=== PATIENT | female | born 1945 | race Caucasian/White ===

== ENCOUNTER 2021-04-27 11:43 | Inpatient (IN) | payer MEDICARE, SELFPAY ==
[2021-04-27] VITALS (7 sets, daily range): BP systolic 141–194; BP diastolic 57–81; PULSE 64–105; RESP 14–23; TEMP 36.6–36.7; O2SAT 98–100; BMI 16.7
--- NOTE | ~2021-04-27 | US_ITS ---
EXAMINATION: US right upper quadrant EXAM DATE: 04/28/2021 14:48 INDICATION: Renal cyst and dilated bile duct. TECHNIQUE: Multiple grayscale and Doppler images of the abdomen right upper quadrant were obtained (b y a technologist who performed the scan) and subsequently reviewed. Correlation is made to CT abdomen pelvis earlier same day. FINDINGS: The pancreatic head and body are normal in appearance. The pancreatic tail is not visualized. The l iver has normal echogenicity and contour. There are no focal liver lesions identified. There is no evidence of intrahepatic biliary duct dilation. Portal venous flow was seen in the hepatopedal, nor mal direction and has normal Doppler waveform. No right-sided hydronephrosis. Cannot identify the sub centimeter right renal lesion reported as indeterminate on CT, statistically most likely hemorrhagic cyst. Common bile duct measures 13 mm, which is considered dilated. The gallbladder wall is normal in thick ness, with expected amount of distention. No sonographic evidence of pericholecystic fluid. There i s no cholelithiases. Technologist performing exam reports patient did not demonstrate sonographic Mur phy's sign. Please note that this sign is less reliable in patients who have received pain medicatio n. IMPRESSION: 1. Dilated common bile duct without cholelithiasis or choledocholithiasis identified, more pancreati c mass on CT performed earlier. If there is elevated bilirubin then MRI/MRCP or ERCP recommended. 2. Subcentimeter right renal lesion is not identified by this modality. Statistically this is most l ikely a hemorrhagic cyst. Reviewed, dictated and finalized at location A. IMPRESSION: 1. Dilated common bile duct without cholelithiasis or choledocholithiasis iden tified, more pancreatic mass on CT performed earlier. If there is elevated bili mckeon then MRI/MRCP or ERCP recommended. 2. Subcentimeter right renal lesion is not identified by this modality. Statis tically this is most likely a hemorrhagic cyst.
--- NOTE | ~2021-04-27 | CT_ITS ---
EXAMINATION: CT diagnostic chest w con DATE: 04/28/2021 13:51 INDICATION: Shortness of breath TECHNIQUE: Transaxial computed tomographic images of the chest were obtained after the administration of 75 cc of Omnipaque 350 intravenous contrast. The dose-length product (DLP) was 134.41 mGy-cm. Ite rative reconstruction was used. COMPARISON: None FINDINGS: There is moderate emphysema. Calcified pulmonary nodules are consistent with old granulomat ous disease. The lungs are free of acute opacities. There is no pleural effusion or pneumothorax. No pathologically enlarged thoracic lymph nodes are identified. The heart size is normal. There is sever e thoracic spondylosis. IMPRESSION: 1. Moderate emphysema. Reviewed, dictated and finalized at location B. IMPRESSION: 1. Moderate emphysema.
--- NOTE | ~2021-04-27 | XR_ITS ---
EXAMINATION: XR chest 2V DATE: 04/27/2021 12:59 INDICATION: Shortness of breath TECHNIQUE: Frontal and lateral views of the chest are obtained COMPARISON: None available FINDINGS: There is a superior perihilar nodular opacity on the right. There is no pleural effusion or pneumothorax. The cardiomediastinal silhouette is normal. There is severe thoracic spondylosis. IMPRESSION: 1. Right superior perihilar nodular opacity which could be infectious or inflammatory or possibly mal ignancy. Recommend followup radiographs in 10-14 days after appropriate therapy to evaluate for impro vement/resolution. Reviewed, dictated and finalized at location B. IMPRESSION: 1. Right superior perihilar nodular opacity which could be infectious or inflam matory or possibly malignancy. Recommend followup radiographs in 10-14 days aft er appropriate therapy to evaluate for improvement/resolution.
--- NOTE | ~2021-04-27 | CT_ITS ---
EXAMINATION: CT abdomen pelvis w con INDICATION: Blood in the stool TECHNIQUE: Computed tomographic images of the abdomen and pelvis were obtained after the administrati on of 100 cc of Omnipaque 350 intravenous contrast. The dose-length product (DLP) was 188.58 mGy-cm. Automated exposure control and iterative reconstruction technique were employed. COMPARISON: None available FINDINGS: There is moderate emphysema. The heart size is normal. There is a 3 mm cyst of the right he patic lobe. The spleen, pancreas, gallbladder, and adrenal glands are normal. The dilated common bile duct measures up to 11 mm. Cysts of the kidneys measure up to 5 mm on the right. There is a 9 mm hyp erdense lesion of the right mid kidney. There is calcified atherosclerosis of the aorta and many of t he other arteries. A retroaortic left renal vein is noted. No pathologically enlarged abdominal or pe lvic lymph nodes are identified. The appendix is normal. There are changes of right hip arthroplasty. There is no free intraperitoneal gas or evidence of bowel obstruction. Colonic diverticulosis is pre sent without evidence of diverticulitis. There is severe lumbar spondylosis. IMPRESSION: 1. No CT correlate for the patient's symptoms. 2. Enlargement of the common bile duct of unclear significance given normal liver function tests. 3. Indeterminate right kidney mass which could reflect hemorrhagic cyst versus neoplasm. Follow-up by CT or MRI without and with contrast is recommended. Reviewed, dictated and finalized at location B. IMPRESSION: 1. No CT correlate for the patient's symptoms. 2. Enlargement of the common bile duct of unclear significance given normal catarina er function tests. 3. Indeterminate right kidney mass which could reflect hemorrhagic cyst versus neoplasm. Follow-up by CT or MRI without and with contrast is recommended.
--- NOTE | ~2021-04-27 | MR_ITS ---
EXAMINATION: MR abdomen wo/w con INDICATION: Renal cyst TECHNIQUE: Coronal SSFSE ARC, WATER:coronal LAVA-FLEX, Coronal 2D FIESTA FatSat, Axial SSFSE BH ARC, Axial 3D DualEcho BH, Axial SSFSE-IR, Axial DWI b=500, Axial 2D FIESTA FatSat, pre and dynamic postco ntrast Axial LAVA ARC, postcontrast Coronal In and Opposed phase LAVA FLEX COMPARISON: CT, 04/28/2021 CONTRAST: Multihance, 19 cc FINDINGS: There is a 9 mm T1 and T2 isointense, nonenhancing lesion of the right kidney lower pole wh ich is consistent with a proteinaceous cyst. Simple cysts of the kidneys measure up to 5 mm. Pancreas divisum is noted. The spleen, gallbladder, and adrenal glands are normal. Cysts of the liver measure up to 6 mm. There is intrahepatic and extrahepatic biliary dilatation. The dilated common bile duct measures up to 12 mm. The pancreatic duct is normal in caliber. No pathologically enlarged abdominal lymph nodes are identified. There is a moderate volume of colonic stool. IMPRESSION: 1. Findings consistent with proteinaceous cyst of the right kidney corresponding to the lesion questi oned on recent CT. 2. Intrahepatic and extrahepatic biliary dilatation of unclear etiology. Reviewed, dictated and finalized at location B. IMPRESSION: 1. Findings consistent with proteinaceous cyst of the right kidney correspondin g to the lesion questioned on recent CT. 2. Intrahepatic and extrahepatic biliary dilatation of unclear etiology.
--- NOTE | 2021-04-27 11:51 | ECG_ITS ---
Measurements Intervals [place] Rate: 96 P: 86 VT: 195 QRS: 19 QRSD: 86 T: 88 QT: 366 QTc: 465 Interpretive Statements SINUS RHYTHM LEFT ATRIAL ENLARGEMENT INCOMPLETE RIGHT BUNDLE BRANCH BLOCK DELAYED PRECORDIAL R/S TRANSITION BORDERLINE T WAVE ABNORMALITY- HIGH LATERAL LEADS BASELINE ARTIFACT- II, III, AVR, AVF, V1, V3-V6 BORDERLINE ECG Electronically Signed On 04-27-2021 12:55:25 CDT by Wali Rodgers D.O.
--- NOTE | 2021-04-27 12:58 | ED.WEAKNESS ---
HPI - Weakness General Chief complaint: Anxiety <Vale Moore PA-C - Last Filed: 04/27/21 16:04> Stated complaint: weak <SHAHRIAR Mortensen Last Filed: 04/27/21 16:04> Time Seen by Provider: 04/27/21 11:55 <SHAHRIAR Mortensen Last Filed: 04/27/21 16:04> Source: patient <SHAHRIAR Mortensen Last Filed: 04/27/21 16:04> Mode of arrival: ambulatory <SHAHRIAR Mortensen Last Filed: 04/27/21 16:04> Limitations: no limitations <SHAHRIAR Mortensen Last Filed: 04/27/21 16:04> History of Present Illness HPI Narrative: This is a 75-year-old female that presents to the emergency department for generalized weakness. Reports yesterday over 3-hour. She had several episodes of watery diarrhea. Reports she took a dose of Imodium with relief. She went to bed early last night. This morning she was still feeling weak. Reports she had an episode of anxiety this morning. She started to feel very overwhelmed and short of breath. Called EMS who is able to calm her down. On arrival patient has no current complaints other than she does feel generally weak. Denies fever, chest pain, shortness of breath, abdominal pain, vomiting, or dysuria. <Vale Moore PA-C - Last Filed: 04/27/21 16:04> Related Data Allergies/Adverse reactions: Allergies Allergy/AdvReac Type Severity Reaction Status Date / Time ibuprofen Allergy Unknown Unknown Verified 04/27/21 11:50 <SHAHRIAR Mortensen Last Filed: 04/27/21 16:04> Review of Systems Review of Systems: Narrative: CONSTITUTIONAL: Denies fever CARDIOVASCULAR: Denies chest pain RESPIRATORY: Denies cough or dyspnea. GASTROINTESTINAL: Reports diarrhea. Denies abdominal pain, nausea, vomiting GENITOURINARY: Denies dysuria NEUROLOGIC: Reports generalized weakness. PSYCHIATRIC: Reports anxiety <SHAHRIAR Mortensen Last Filed: 04/27/21 16:04> All systems reviewed & are unremarkable except as noted in HPI and below <Vale Moore PA-C - Last Filed: 04/27/21 16:04> PMFSH Past Medical History Medical History: Medical History Essential (primary) hypertension <Vale Moore PA-C - Last Filed: 04/27/21 16:04> Surgical History Surgical History: Surgical History History of total right hip replacement 11/2015 <Vale Moore PA-C - Last Filed: 04/27/21 16:04> Social History Social History: Social History Smoking packs per day: 0.25 Smoking cigarettes per day: 5.0 Years smoked: 56 Smoking pack-years: 14.00 Smoking status: Current some day smoker Tobacco type: cigarettes (currently smoking 1-2 cigarettes/day) Second hand tobacco smoke exposure: No Alcohol intake: current Alcohol use details: 1 glass of wine consumed occansionally Substance use: never Substance use type: does not use Additional living arrangements comments: Gender identity (if verbalized by the patient): Female <Vale Moore PA-C - Last Filed: 04/27/21 16:04> Exam Narrative: Exam Narrative: GENERAL: Elderly, well-nourished, and in no acute distress. HEAD: Normocephalic, atraumatic. EYES: EOMI. ENT: Nares clear, no rhinorrhea or epistaxis. Mucous membranes moist. Oropharynx without tonsillar hypertrophy exudate or other lesions. Bilateral TMs pearly witt non-bulging NECK: Supple. No adenopathy or masses. CHEST: Clear to auscultation. No respiratory distress. No wheezes rales or rhonchi HEART: Regular rate and rhythm. No murmur heard. Normal peripheral pulses. ABDOMEN: Soft, nontender, nondistended, normal active bowel sounds. EXTREMITIES: Normal range of motion. No edema. SKIN: Warm, dry, no rash. NEURO: No focal deficits. Alert and oriented x3. PSYCH: Normal mood and affect RECTAL: Non-thrombosed hemorrhoids present. Stool i
[2021-04-27] MEDS: SODIUM CHLORIDE 0.9% IV 1,000 ML 999 ML IV CONT (13:03)
[2021-04-27 13:24] LABS: Basophils Absolute Auto 0.1 K/mm3 (0.0-0.1); Basophils Percent Auto 0.4 % (0.2-1.2); Eosinophils Percent Auto 0.4 % (0-4.4); Hematocrit 25.8 % (37.0-47.0); Hemoglobin 8.5 g/dL (12.0-15.0); Immature Granulocyte Absolute 0.07 K/mm3 (0.00-0.031); Immature Granulocyte Percent A 0.6 % (0-0.5); Lymphocytes Absolute Auto 1.19 K/mm3 (0.9-3.2); Lymphocytes Percent Auto 10.4 % (18.3-44.2); Mean Corpuscular HGB Conc 32.9 g/dl (32-36); Mean Corpuscular Hemoglobin 34.3 pg (26-34); Mean Platelet Volume 9.2 fl (7.4-10.4); Monocytes Absolute Auto 0.7 K/mm3 (0.1-0.6); Monocytes Percent Auto 6.4 % (2.6-8.5); Neutrophils Absolute Auto 9.3 K/mm3 (1.3-6.7); Neutrophils Percent Auto 81.8 % (45.5-73.1); Platelet Count Result 312 k/mm3 (150-375); Red Blood Count 2.48 M/mm3 (4.2-5.4); Red Cell Distribution Width 12.6 % (11.5-14.5); White Blood Count 11.4 K/mm3 (4.5-10.0)
[2021-04-27 13:41] LABS: Alanine Aminotransferase 12 U/L (4-35); Albumin Level 3.7 g/dL (3.5-5.1); Alkaline Phosphatase 58 U/L (38-126); Anion Gap 8 mmol/L (8-16); Aspartate Amino Transferase 23 U/L (14-36); Bilirubin,Total 0.2 mg/dL (0.2-1.3); Blood Urea Nitrogen 22 mg/dL (7-17); Calcium 9.1 mg/dL (8.4-10.2); Carbon Dioxide 23 mmol/L (22-30); Chloride 110 mmol/L (98-107); Estimated CRCL calculation 23 ml/min; Estimated Glomerular Filt Rate > 60; Glucose 106 mg/dL (65-110); Lipase 74 U/L (23-300); Potassium 3.7 mmol/L (3.4-5.0); Sodium 141 mmol/L (137-145)
[2021-04-27 16:35] LABS: INR 0.9; Prothrombin Time 11.9 Seconds (11.1-14.7)
[2021-04-27 16:36] LABS: Partial Thromboplastin Time 23.9 SECONDS (22.3-36.8)
--- NOTE | 2021-04-27 16:55 | PC.NURSE ---
Patient dinner tray ordered at this time.
[2021-04-27 17:59] LABS: Hematocrit 25.6 % (37.0-47.0); Hemoglobin 8.3 g/dL (12.0-15.0)
--- NOTE | 2021-04-27 20:30 | ADMGEN ---
This patient, Sangeetha Contreras, was admitted to 2 Medical Room 257-01. Patient/family oriented to hospital policies and general routines including ID bracelet, bed and alarms, visiting hours, pain management, procedures, bathroom and other care routines, personal items, smoking policy, room service/diet, and visiting hours. Information on how to activate the Rapid Response Team has been discussed. Patient/Family are encouraged to report perceived risks to care and to ask questions if they do not understand what they are told or what they should do.
[2021-04-27] MEDS: FAMOTIDINE 20 MG/2 ML VIAL IV PUSH (21:56)
--- NOTE | 2021-04-27 22:21 | PM.IMHP ---
H&P: HPI History of Present Illness Date/Time: 04/27/21 22:21Ana is a 75-year-old female patient who has been under lot of stress with her . Her has worsening dementia and recently placed thing home. The patient is not on any blood thinners. And the patient was having some watery diarrhea yesterday of her 3 hour. She went to bed early last night and this morning she was still feeling weak. The patient stated that she has been anxious about her 's care. She feels overwhelmed. EMS was able to calm her down today. She had no fever chills. No abdominal pain no nausea vomiting. Just diarrhea. The patient has not been on any recent antibiotics. Her white count was noted to be 11.4. Her H&H initially was 8.5 and 25.8 and then it dropped down 8.3 and25.6. The patient stated that she has hot having any blood in her stool. the patient was started on IV Pepcid and IV fluids. GI has been consulted. The patient stated she has not taken any NSAIDs or aspirin. The patient is being admitted to observation status on the date of service of 04/27/2021. Chief Complaint: diarrhea stool GI bleed Review of Systems Review of Systems: All systems reviewed & are unremarkable except as noted in HPI and below Constitutional: Constitutional: Reports as per HPI and Reports no additional constitutional complaints Eyes: Eyes: Reports as per HPI and Reports no additional eye complaints ENT: Reports system reviewed and no additional complaints, except as documented and Reports Normal hearing present Cardiovascular: Cardiovascular: Reports no additional cardiovascular complaints Respiratory: Respiratory: Reports no additional respiratory complaints and Reports no additional respiratory complaints Gastrointestinal: Gastrointestinal: Reports as per HPI and Reports no additional gastrointestinal complaints Musculoskeletal: Musculoskeletal: Reports no additional musculoskeletal complaints Integumentary/Breasts: Skin/Breast: Reports system reviewed and no additional complaints, except as docu and Reports as per HPI Neurologic: Reports system reviewed and no additional complaints, except as documented, Reports as per HPI and Reports Normal hearing present Psychiatric: Psychiatric: Reports no additional psychiatric complaints and Reports as per HPI Endocrine: Endocrine: Reports no additional endocrine complaints Hematologic/Lymphatic: Hematologic/Lymphatic: Reports no additional hematologic/lymphatic complaints Allergic/Immunologic: Allergic/Immunologic: Reports no additional allergic/immunologic complaints [facility] Past Medical History Medical History Essential (primary) hypertension Surgical History Surgical History (Updated 04/27/21 @ 22:34 by Giulia Miranda NP) H/O colonoscopy with polypectomy History of total right hip replacement 11/2015 Family History Family History Other Unknown family medical history Social History Social History (Updated 04/27/21 @ 22:27 by Giulia Miranda NP) Social History: The patient stated that she still continues to smoke about half pack a cigarettes a day. She has been taking care of her who has dementia. She has 3 children. They are the durable power assistant district attorney for healthcare. The patient would like to be a full code but would not like to live in a vegetative state. 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 She occasionally drinks wine with meals. No marijuana or illicit drugs Smoking packs per day: 0.5 Smoking cigarettes per day: 10.0 Years smoked: 50 Smoking pack-years: 25.00 Smoking status: Current every day smoker Tobacco type: cigarettes Second hand tobacco smoke exposure: No Alcohol intake: current Drinks per week: 1 Alcohol use details: 1 glass of wine consumed occansionally Substance use: never Substance use type: does not
[2021-04-27 23:28] LABS: Hematocrit 23.8 % (37.0-47.0); Hemoglobin 7.7 g/dL (12.0-15.0); Immature Reticulocyte Fraction 28.5 % (3.0-15.9); Reticulocyte Percent 2.33 % (0.7-4.3); Reticulocytes Absolute 0.05 B/L (32.2-175.7)
[2021-04-27 23:39] LABS: Bilirubin,Total 0.3 mg/dL (0.2-1.3); Lactate Dehydrogenase 342 U/L (313-618)
[2021-04-27 23:47] LABS: Transferrin 250 mg/dL (206-381)
[2021-04-28] VITALS (7 sets, daily range): BP systolic 106–136; BP diastolic 48–77; PULSE 64–81; RESP 18–20; TEMP 36.4–36.8; O2SAT 95–100; BMI 16.7
[2021-04-28 00:27] LABS: Iron 61 ug/dL (37-170); Percent Iron Saturation 18 % (20-50)
[2021-04-28 05:47] LABS: Hematocrit 22.8 % (37.0-47.0); Hemoglobin 7.4 g/dL (12.0-15.0)
--- NOTE | 2021-04-28 07:34 | WPDGICN ---
Assessment and Plan Assessment and plan (1) Acute GI bleeding: Code(s): K92.2 - Gastrointestinal hemorrhage, unspecified Status: Acute Assessment and Plan: probably upper gi source- will proceed with urgent EGD, could be ulcer, avm's, esophagitis, etc iv protonix twice daily (2) Acute blood loss anemia: Code(s): D62 - Acute posthemorrhagic anemia Status: Acute Assessment and Plan: trend hb and transfuse if below 7 supportive care (3) Essential (primary) hypertension: Code(s): I10 - Essential (primary) hypertension Status: Acute (4) Weakness: Code(s): R53.1 - Weakness Status: Acute Assessment and Plan: with symptomatic anemia, from recent upper GIB at some point also will need outpatient colonoscopy GI Consult Note Consult date/time: 04/28/21 07:34 Reason for consult: dark stools, gib HPI: Sangeetha Contreras is a 75 year old female here with diarrhea after she had cucumbers night before, stool described as dark tarry, then she fell quite weak. Never had scopes. She is under a lot of stress because recently just placed her who has advanced dementia to a detention. Denies using nsaid's or blood thinners. Hb on admission 8.5 and slowly trending down to 7.4, bun 22, creat 0.9, platelets 310. Denies previous GIB. Review of Systems Constitutional: Constitutional: Denies chills and Reports weakness Eyes: Eyes: Denies blurry vision ENT: Reports Normal hearing present Cardiovascular: Cardiovascular: Denies chest pain Respiratory: Respiratory: Denies cough Gastrointestinal: Gastrointestinal: Reports melena Genitourinary: Genitourinary: Denies hematuria Musculoskeletal: Musculoskeletal: Denies neck pain Integumentary/Breasts: Skin/Breast: Denies dry skin Neurologic: Denies confusion Psychiatric: Psychiatric: Denies behavioral changes [facility] Past Medical History Medical History (Updated 04/28/21 @ 12:54 by Cleveland Modi MD) Acute blood loss anemia Essential (primary) hypertension Weakness Surgical History Surgical History (Updated 04/27/21 @ 22:34 by Giulia Miranda NP) H/O colonoscopy with polypectomy History of total right hip replacement 11/2015 Family History Family History Other Unknown family medical history Social History Social History (Updated 04/27/21 @ 22:27 by Giulia Miranda NP) Social History: The patient stated that she still continues to smoke about half pack a cigarettes a day. She has been taking care of her who has dementia. She has 3 children. They are the durable power health care attorney for healthcare. The patient would like to be a full code but would not like to live in a vegetative state. 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 She occasionally drinks wine with meals. No marijuana or illicit drugs Smoking packs per day: 0.5 Smoking cigarettes per day: 10.0 Years smoked: 50 Smoking pack-years: 25.00 Smoking status: Current every day smoker Tobacco type: cigarettes Second hand tobacco smoke exposure: No Alcohol intake: current Drinks per week: 1 Alcohol use details: 1 glass of wine consumed occansionally Substance use: never Substance use type: does not use Additional living arrangements comments: Gender identity (if verbalized by the patient): Female Spiritual care concerns: No Meds Home Medications and Allergies Home Medications Medication Instructions Recorded Confirmed Type amlodipine 10 mg PO DAILY 04/27/21 04/27/21 History Allergies Allergy/AdvReac Type Severity Reaction Status Date / Time ibuprofen Allergy Unknown Unknown Verified 04/27/21 11:50 Vital Signs Vital Signs - 24 hr 04/27/21 11:45 04/27/21 12:30 04/27/21 14:54 Temperature 98 F Pulse Rate 105 H 90 71 Respiratory Rate 15 14 17 Blood Pressure 179/80 H 194/73 H 152/67 H Pul
[2021-04-28] MEDS: FAMOTIDINE 20 MG/2 ML VIAL IV PUSH (09:38)
[2021-04-28] MEDS: amLODIPine BESYLATE 5 MG TABLET 10 MG PO (09:38)
[2021-04-28] MEDS: SODIUM CHLORIDE 0.9% IV 1,000 ML 100 ML IV CONT ×2 (09:40)
--- NOTE | 2021-04-28 10:59 | WPDANESEPPF ---
Anes - Initial Pre Proc Eval Procedure: Operation Date: 04/28/21 12:30 Proposed Procedures p Esophagogastroduodenoscopy - Cleveland Modi MD Date/Time: 04/28/21 10:59 Surgeon: Jack Isaacs MD Pre Op Diagnosis: GI Bleed Patient Data Age: 75 Gender: F Height: 1.73 m Weight: 49.8 kg Last Vital Signs Temp 36.8 C 04/28/21 06:00 Pulse 67 04/28/21 06:00 Resp 18 04/28/21 06:00 BP 136/50 L 04/28/21 06:00 Pulse Ox 97 04/28/21 06:00 Allergies Allergy/AdvReac Type Severity Reaction Status Date / Time ibuprofen Allergy Unknown Unknown Verified 04/27/21 11:50 Home Medications Medication Instructions Recorded Confirmed Type amlodipine 10 mg PO DAILY 04/27/21 04/27/21 History Laboratory Tests 04/27/21 04/27/21 04/27/21 13:16 13:16 16:15 WBC 11.4 K/mm3 H K/mm3 (4.5-10.0) RBC 2.48 M/mm3 L M/mm3 (4.2-5.4) Hgb 8.5 g/dL L g/dL (12.0-15.0) Hct 25.8 % L % (37.0-47.0) MCV 104.0 fl H fl (80-100) MCH 34.3 pg H pg (26-34) MCHC 32.9 g/dl g/dl (32-36) RDW 12.6 % % (11.5-14.5) Plt Count 312 k/mm3 k/mm3 (150-375) MPV 9.2 fl fl (7.4-10.4) Immature Gran % (Auto) 0.6 % H % (0-0.5) Neut % (Auto) 81.8 % H % (45.5-73.1) Lymph % (Auto) 10.4 % L % (18.3-44.2) Lee % (Auto) 6.4 % % (2.6-8.5) Eos % (Auto) 0.4 % % (0-4.4) Baso % (Auto) 0.4 % % (0.2-1.2) Lymph # (Auto) 1.19 K/mm3 K/mm3 (0.9-3.2) Lee # (Auto) 0.7 K/mm3 H K/mm3 (0.1-0.6) Eos # (Auto) 0.0 K/mm3 K/mm3 (0-0.3) Baso # (Auto) 0.1 K/mm3 K/mm3 (0.0-0.1) Abs Immat Gran (auto) 0.07 K/mm3 H K/mm3 (0.00-0.031) Absolute Neuts (auto) 9.3 K/mm3 H K/mm3 (1.3-6.7) Absolute Nucleated RBC 0.0 K/mm3 K/mm3 (0.0-0.012) Nucleated RBC % 0.0 % % (0.0-0.2) Absolute Retic Percent Retic Immature Retic Fraction Retic Hgb Content Haptoglobin PT 11.9 Seconds Seconds (11.1-14.7) INR 0.9 APTT 23.9 SECONDS SECONDS (22.3-36.8) Sodium 141 mmol/L mmol/L (137-145) Potassium 3.7 mmol/L mmol/L (3.4-5.0) Chloride 110 mmol/L H mmol/L (98-107) Carbon Dioxide 23 mmol/L mmol/L (22-30) Anion Gap 8 mmol/L mmol/L (8-16) BUN 22 mg/dL H mg/dL (7-17) Creatinine 0.90 mg/dL mg/dL (0.7-1.0) Estim Creat Clear Calc 23 ml/min ml/min Estimated GFR > 60 (59 - ) Glucose 106 mg/dL mg/dL (65-110) Calcium 9.1 mg/dL mg/dL (8.4-10.2) Iron TIBC % Saturation Transferrin Jane Transferrin Receptr Ferritin Total Bilirubin 0.2 mg/dL mg/dL (0.2-1.3) Direct Bilirubin AST 23 U/L U/L (14-36) ALT 12 U/L U/L (4-35) Alkaline Phosphatase 58 U/L U/L (38-126) Lactate Dehydrogenase Total Protein 6.0 g/dL L g/dL (6.3-8.2) Albumin 3.7 g/dL g/dL (3.5-5.1) Immjb-3-Gbuyjfqto Rqvsp-5-Zazdebecl Gqyf-5-Zfrslcom Psmr-3-Vqooiloh Gamma Globulins Abnorm Protein Band 1 Abnorm Protein Band 3 PEP Interpretation Lipase 74 U/L U/L (23-300) Vitamin B12 Folate TSH (Reflex) Blood Type Antibody Screen CAROLIN, IgG Interpret CAROLIN, Poly Interpret CAROLIN, Complement Interp Indirect Antiglob Test 04/27/21 04/27/21 04/27/21 16:15 17:54 23:02 WBC RBC Hgb 8.3 g/dL L g/dL 7.7 g/dL L g/dL (12.0-15.0) (12.0-15.0) Hct 2
--- NOTE | 2021-04-28 11:00 | PC.NURSE ---
Patient to CT scan and to go to GI lab from there.
[2021-04-28] MEDS: LACTATED RINGERS 1,000 ML 150 ML IV CONT (11:11)
--- NOTE | 2021-04-28 13:19 | PC.NURSE ---
Received patient back from GI lab. Patient settled in room. No distress noted and no c/o pain.
--- NOTE | 2021-04-28 13:46 | PM.IMPN ---
Progress Note: A&P Assessment and Plan (1) Acute GI bleeding: Code(s): K92.2 - Gastrointestinal hemorrhage, unspecified Status: Acute Assessment and Plan: Complaints of diarrhea with dark stools EGD today found a large ulcer GI consulted thank you H/H stable at this point will recheck IV protonix 40mg Q12hr Stool cultures still pending PTH cultures are pending Transfuse when appropriate (2) Anemia: Qualifiers: Anemia type: unspecified type Qualified Code(s): D64.9 - Anemia, unspecified Code(s): D64.9 - Anemia, unspecified Status: Acute Assessment and Plan: Med surge anemia iron 61, TIBC 330, %Sat 18, Transferrin 250, Ferritin 36.60 Started on iron 325mg PO daily Monitor H/H Transfuse as needed (3) Essential (primary) hypertension: Code(s): I10 - Essential (primary) hypertension Status: Acute Assessment and Plan: 120/49 currently Trend blood pressure Continue home amlodipine 10mg PO daily Adjust medications as needed (4) Renal cyst: Code(s): N28.1 - Cyst of kidney, acquired Status: Acute Assessment and Plan: Abd CT showed a renal cyst that could be hemophagic MRI has been ordered Will follow H/H Subjective Date/time seen: 04/28/21 07:45 Interval history: This is a 75-year-old female with a past medical history of hypertension who presented to the ED for diarrhea and weakness. Patient stated that this started on Monday morning. She stated that it quit and then on is all started again. She stated that she became very weak and tired and could not get off of the pot. She stated that she feels a lot better today and is ready to go home. She also stated that she has been very stressed out lately since she has moved her into a group home. She did have an EGD performed today that showed a large ulcer and multiple areas of old bleeding that were cauterized. Patient denies chest pain, shortness of breath, nausea, vomiting, sweats, chills, headaches, or fevers. Review of Systems Review of Systems: All systems reviewed & are unremarkable except as noted in HPI and below Exam Const: General: cooperative, healthy appearing, comfortable, no acute distress, well developed, alert, awake and Physically active Nutritional Appearance: average body habitus and well nourished Orientation/consciousness: oriented to person, oriented to place, oriented to time and patient oriented x3 Limitations: no limitations HENMT: Head: normal to inspection, No palpable skull fracture present, normocephalic and atraumatic Ears: hearing grossly normal bilaterally and external ears normal General nose exam: Normal external nose present, Normal nares present and No nasal polyps present Eyes: General: appearance normal, both eyes and all related structures Alignment and Position: alignment normal Periorbital: periorbital findings normal Eyelids: eyelids normal Conjunctivae: conjunctivae normal Pupils: Equal, round and reactive pupils present EOM: EOMs intact bilaterally Neck: Neck: normal visual inspection, full ROM, no lymphadenopathy, trachea midline and supple Thyroid: thyroid normal Carotids: normal carotid upstroke Lymphatic: no lymphadenopathy noted Chest: Chest palpation & inspection: normal inspection of the chest Resp: Effort & Inspection: normal respiratory effort Auscultation: clear to auscultation bilaterally Percussion: percussion normal Cardio: Palpation: normal PMI Rate: regular rate Rhythm: regular rhythm Heart sounds: S1 normal heart sound present and S2 normal heart sound present Peripheral pulses: Peripheral pulses 2+ throughout GI: Inspection: normal to inspection Auscultation: normal bowel sounds Rectal Exam: deferred Skin: General skin exam: normal color Lesions: no lesions Rashes: no rashes Trauma: no lacerations or abrasions Wounds: no wounds Hair
[2021-04-28 15:54] LABS: Hematocrit 25.4 % (37.0-47.0); Hemoglobin 8.3 g/dL (12.0-15.0)
--- NOTE | 2021-04-28 16:30 | PC.NURSE ---
Mart [employer] ACUTE CARE PHYSICAL THERAPIST on floor. Notified Mart of all test results from today. Mart went to room and had a conversation with patient and her son. Patient will stay overnight for further observation.
[2021-04-28 17:56] LABS: Folic Acid 11.6 ng/mL (2.76->20); Vitamin B12 < 159.0 pg/mL (239-931)
[2021-04-28] MEDS: PANTOPRAZOLE SODIUM IV 40 MG VIAL IV PUSH (20:25)
[2021-04-29 05:04] VITALS: BP 117/48; PULSE 70; RESP 18; TEMP 36.3; O2SAT 96
[2021-04-29 06:49] LABS: Basophils Absolute Auto 0.1 K/mm3 (0.0-0.1); Basophils Percent Auto 0.7 % (0.2-1.2); Eosinophils Absolute Auto 0.6 K/mm3 (0-0.3); Eosinophils Percent Auto 7.4 % (0-4.4); Hematocrit 22.9 % (37.0-47.0); Hemoglobin 7.5 g/dL (12.0-15.0); Immature Granulocyte Absolute 0.03 K/mm3 (0.00-0.031); Immature Granulocyte Percent A 0.4 % (0-0.5); Lymphocytes Absolute Auto 1.41 K/mm3 (0.9-3.2); Lymphocytes Percent Auto 17.1 % (18.3-44.2); Mean Corpuscular HGB Conc 32.8 g/dl (32-36); Mean Corpuscular Hemoglobin 34.9 pg (26-34); Mean Corpuscular Volume 106.5 fl (80-100); Mean Platelet Volume 9.4 fl (7.4-10.4); Monocytes Absolute Auto 0.7 K/mm3 (0.1-0.6); Monocytes Percent Auto 8.8 % (2.6-8.5); Neutrophils Absolute Auto 5.4 K/mm3 (1.3-6.7); Neutrophils Percent Auto 65.6 % (45.5-73.1); Platelet Count Result 305 k/mm3 (150-375); Red Blood Count 2.15 M/mm3 (4.2-5.4); Red Cell Distribution Width 12.6 % (11.5-14.5); White Blood Count 8.3 K/mm3 (4.5-10.0)
[2021-04-29 07:02] LABS: Alanine Aminotransferase 10 U/L (4-35); Albumin Level 3.3 g/dL (3.5-5.1); Alkaline Phosphatase 50 U/L (38-126); Anion Gap 5 mmol/L (8-16); Aspartate Amino Transferase 32 U/L (14-36); Bilirubin,Total 0.3 mg/dL (0.2-1.3); Blood Urea Nitrogen 6 mg/dL (7-17); Calcium 8.4 mg/dL (8.4-10.2); Carbon Dioxide 27 mmol/L (22-30); Chloride 109 mmol/L (98-107); Estimated CRCL calculation 41 ml/min; Estimated Glomerular Filt Rate > 60; Glucose 92 mg/dL (65-110); Potassium 3.7 mmol/L (3.4-5.0); Sodium 141 mmol/L (137-145)
[2021-04-29] MEDS: FERROUS SULFATE 324 MG TABLET PO (08:11)
[2021-04-29] MEDS: amLODIPine BESYLATE 5 MG TABLET 10 MG PO (08:11)
[2021-04-29] MEDS: PANTOPRAZOLE SODIUM IV 40 MG VIAL IV PUSH (08:11)
--- NOTE | 2021-04-29 11:01 | PM.DS ---
DS: Admitting Diagnosis Admitting Diagnosis Admitting Diagnosis: GI Bleed and dirrhea DS: Discharge Diagnosis Discharge Diagnosis (1) Acute GI bleeding: Code(s): K92.2 - Gastrointestinal hemorrhage, unspecified Status: Acute Assessment and Plan: Complaints of diarrhea with dark stools EGD today found a large ulcer GI consulted thank you H/H stable at this point will recheck IV protonix 40mg Q12hr Stool cultures still pending PTH cultures are pending Transfuse when appropriate EGD was performed and patient will need to start Protonix 40mg BID after DC Follow up with GI for a repeat EGD in 8 weekd Iron 325mg PO BID (2) Anemia: Qualifiers: Anemia type: unspecified type Qualified Code(s): D64.9 - Anemia, unspecified Code(s): D64.9 - Anemia, unspecified Status: Acute Assessment and Plan: Med surge anemia iron 61, TIBC 330, %Sat 18, Transferrin 250, Ferritin 36.60 Started on iron 325mg PO daily Monitor H/H Transfuse as needed Start iron 325mg PO BID (3) Essential (primary) hypertension: Code(s): I10 - Essential (primary) hypertension Status: Acute Assessment and Plan: 117/48 currently Trend blood pressure Continue home amlodipine 10mg PO daily Adjust medications as needed (4) Renal cyst: Code(s): N28.1 - Cyst of kidney, acquired Status: Acute Assessment and Plan: Abd CT showed a renal cyst that could be hemophagic MRI has been ordered Will follow H/H DS: Summary Hospital Course Hospital Course: Scott is a 75 year old female with a past medical history of hypertension that presented tot he ED with complaints of dirrhea for the last few days. It was found that the patient was dehydrated. An EGD was performed that found a very large gastric ulcer. Biopsy were taken. It was also found that the patient has a renal cyst, which she did get a MRI and ultrasound performed. Further treatment should be followed up outpatient. Labs this visit have been stable. She will need to follow up with primary care in 1-2 weeks. Vital signs have been stable since admission. Patient has no complaints of chest pain, shortness of breath, nausea, vomiting, diarrhea, constipation, fevers, chills, or sweats. Time spent discussing smoking cessation with patient: more than 10 minutes Status at Discharge Functional status at discharge: independent ambulation Overall status at discharge: patient is back to baseline Time Spent with Patient Time attestation: Total time spent providing and/or coordinating discharge services:49 minutes Time spent: Greater than 30 minutes Specific discharge activities: Chart review, diagnostic testing, result review, physical exam, care coordination, documentation and education Exam Const: General: cooperative, healthy appearing, comfortable, no acute distress, well developed, alert, awake and Physically active Nutritional Appearance: average body habitus and well nourished Orientation/consciousness: oriented to person, oriented to place, oriented to time and patient oriented x3 Limitations: no limitations HENMT: Head: normal to inspection, No palpable skull fracture present, normocephalic and atraumatic Ears: hearing grossly normal bilaterally and external ears normal General nose exam: Normal external nose present, Normal nares present and No nasal polyps present Eyes: General: appearance normal, both eyes and all related structures Alignment and Position: alignment normal Periorbital: periorbital findings normal Eyelids: eyelids normal Conjunctivae: conjunctivae normal Sclera: sclerae normal Cornea: corneas normal Pupils: Equal, round and reactive pupils present EOM: EOMs intact bilaterally Neck: Neck: normal visual inspection, full ROM, no lymphadenopathy, trachea midline and supple Thyroid: thyroid normal Carotids: normal carotid upstroke Lymphatic: no lymphad
--- NOTE | 2021-04-29 13:55 | WPDGIPROGNO ---
Progress Note: A&P Assessment and Plan (1) Gastric ulcer: Code(s): K25.9 - Gastric ulcer, unspecified as acute or chronic, without hemorrhage or perforation Status: Acute Assessment and Plan: large ulcer yesterday with pending biopsy no more bleeding, she can go home with ppi twice daily and will repeat egd in 8 weeks to assess for healing, also if she is interested also can have colonoscopy (she says that had cologuard about 2 years ago) (2) Acute blood loss anemia: Code(s): D62 - Acute posthemorrhagic anemia Status: Acute Assessment and Plan: stable, no more bleeding (3) Weakness: Code(s): R53.1 - Weakness Status: Acute Assessment and Plan: improved with medical treatment (4) Essential (primary) hypertension: Code(s): I10 - Essential (primary) hypertension Status: Acute Subjective Date/time seen: 04/29/21 13:55 Interval history: no more bleeding. EGD yesterday with large gastric ulcer, also small AVM treated with apc Review of Systems Review of Systems: All systems reviewed & are unremarkable except as noted in HPI and below Exam Const: General: comfortable and no acute distress HENMT: General nose exam: Normal nares present Eyes: Sclera: sclerae normal Neck: Neck: supple Resp: Auscultation: clear to auscultation bilaterally Cardio: Rate: regular rate GI: Inspection: non-distended GI Palp: Yes Soft to palpation and No Tenderness to palpation present (GI) Auscultation: normal bowel sounds Skin: General skin exam: no rashes or lesions noted and erythema Neuro: Speech: normal speech Motor exam (neuro): Normal motor muscle tone present throughout Extrem: General: normal to inspection Psych: Mental Status: mental status grossly normal Objective Data Vital Signs Vital Signs: Vital Signs - 24 hr 04/28/21 14:00 04/28/21 20:00 04/28/21 21:27 Temperature 97.8 F 97.6 F Pulse Rate 76 71 71 Respiratory Rate 18 18 18 Blood Pressure 107/52 L 106/48 L Pulse Oximetry 95 98 98 04/29/21 05:04 Temperature 97.3 F L Pulse Rate 70 Respiratory Rate 18 Blood Pressure 117/48 L Pulse Oximetry 96 Intake/Output Intake/Output: Intake & Output 04/26/21 04/27/21 04/28/2122/21 23:59 23:59 23:59 23:59 Intake Total 1000 2670 840 Output Total 1700 800 Balance 1000 970 40 Meds/Results Medications: Active Medications Generic Name Dose Route Start Last Admin Trade Name Yecenia PRN Reason Stop Dose Admin Amlodipine Besylate 10 mg 04/28/21 09:00 04/29/21 08:11 Amlodipine Besylate 5 Mg Tablet PO 10 mg DAILY THOMAS Administration Ferrous Sulfate 324 mg 04/29/21 08:00 04/29/21 08:11 Ferrous Sulfate 324 Mg Tablet PO 324 mg DAILY@0800 THOMAS Administration Pantoprazole Sodium 40 mg 04/28/21 21:00 04/29/21 08:11 Pantoprazole Sodium Iv 40 Mg Vial IV PUSH 40 mg Q12HR THOMAS Administration Radiology Results: ITS Impressions Chest X-Ray 04/27/21 13:00 IMPRESSION: 1. Right superior perihilar nodular opacity which could be infectious or inflammatory or possibly malignancy. Recommend followup radiographs in 10-14 days after appropriate therapy to evaluate for improvement/resolution. Abdomen/Pelvis CT 04/28/21 12:04 IMPRESSION: 1. No CT correlate for the patient's symptoms. 2. Enlargement of the common bile duct of unclear significance given normal liver function tests. 3. Indeterminate right kidney mass which could reflect hemorrhagic cyst versus neoplasm. Follow-up by CT or MRI without and with contrast is recommended. Chest CT 04/28/21 14:06 IMPRESSION: 1. Moderate emphysema. Upper Quadrant Ultrasound 04/28/21 14:51 IMPRESSION: 1. Dilated common bile duct without cholelithiasis or choledocholithiasis identified, more pancreatic mass on CT performed earlier. If there is elevated bilirubin then MRI/MRCP or ERCP recommended. 2. Subcentimeter right renal lesion is not identified
[2021-04-29 14:00] VITALS: BP 108/47; PULSE 71; RESP 18; TEMP 36.8; O2SAT 98
[2021-05-01 10:01] LABS: Haptoglobin 287 mg/dL (43-212)
[2021-05-02 05:19] LABS: Albumin 3.4 g/dL (3.8-4.8); Alpha 1 Globulin 0.3 g/dL (0.2-0.3); Alpha 2 Globulin 0.8 g/dL (0.5-0.9); Beta 1 Globulin 0.4 g/dL (0.4-0.6); Gamma Globulin 0.5 g/dL (0.8-1.7); Interpretation Consistent with; Protein, Total 5.6 g/dL (6.1-8.1)
== END 2021-04-29 18:50 | disposition home or self-care (01) | DRG 378 ==
LOC: ANHED 16:01 → ANH2MED 18:06
PROVIDERS: Internal Medicine Gastroenterology; Nurse Practitioner; Physician Assistant; Admitting Provider Family Medicine; Emergency Provider Emergency Medicine; PCP Family Medicine; Visit Provider Internal Medicine
PROC: 0DJ08ZZ Inspection of Upper Intestinal Tract, Via Natural or Artificial Opening Endoscopic (ICD-10-PCS; CPT 43235; principal; 2021-04-28 12:30)
DX: K25.0 Acute gastric ulcer with hemorrhage (principal); D62 Acute posthemorrhagic anemia; K31.819 Angiodysplasia of stomach and duodenum without bleeding; K44.9 Diaphragmatic hernia without obstruction or gangrene; E86.0 Dehydration; I10 Essential (primary) hypertension; F17.210 Nicotine dependence, cigarettes, uncomplicated; Z96.641 Presence of right artificial hip joint; N28.1 Cyst of kidney, acquired
CPT/HCPCS: 36415; 71046; 71260; 74177; 74181; 74183; 76705; 80053; 82247; 82248; 82607; 82728; 82746; 83010; 83540; 83550; 83615; 83690; 84155; 84165; 84238; 84443; 84466; 85014; 85018; 85025; 85046; 85610; 85730; 86850; 86880; 86900; 86901; 87081; 88305; 88342; 93005; 96361; 96374; 96376; 99285; A9270; A9577; C9113; G0378; J2704; J7030; J7120; Q9967

== ENCOUNTER 2021-07-02 02:05 | Day surgery (SDC) | payer MEDICARE, SELFPAY ==
[2021-05-20 14:28] VITALS: BMI 16.7
--- NOTE | 2021-05-31 13:52 | P.PNAN_ITS ---
Anes - Initial Pre Proc Eval Procedure: Operation Date: 06/01/21 11:00 Proposed Procedures p Esophagogastroduodenoscopy - Cleveland Modi MD Date/Time: 05/31/21 13:52 Surgeon: Cleveland Modi MD Pre Op Diagnosis: gastric ulcer Patient Data Age: 75 Gender: F Height: 1.73 m Weight: 50 kg Allergies Allergy/AdvReac Type Severity Reaction Status Date / Time ibuprofen Allergy Unknown Vomiting Verified 05/26/21 13:30 Home Medications Medication Instructions Recorded Confirmed Type amlodipine 10 mg PO DAILY 04/27/21 05/26/21 History ferrous sulfate 325 mg (65 mg 324 mg PO BID #90 tablet 05/26/21 05/26/21 Rx iron) tablet mecobalamin (vitamin B12) 1,000 1,000 mcg SUBLINGUAL DAILY #90 05/26/21 05/26/21 Rx mcg disintegrating tablet tablet,sublingual pantoprazole 40 mg tablet,delayed 40 mg PO BID #90 tablet 05/26/21 05/26/21 Rx release PMFSH Past Medical History Medical History Acute blood loss anemia Essential (primary) hypertension Gastric ulcer Vitamin B12 deficiency Weakness Surgical History Surgical History H/O colonoscopy with polypectomy 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 She has been taking care of her who has dementia. She has 3 children. They are the durable power managing attorney for healthcare. The patient would like to be a full code but would not like to live in a vegetative state. She is retired from being a [employer] [place] at a [employer]. She occasionally drinks wine with meals. No marijuana or illicit drugs Smoking packs per day: 0.5 Smoking cigarettes per day: 10.0 Years smoked: 50 Smoking pack-years: 25.00 Smoking status: Current every day smoker Tobacco type: cigarettes Second hand tobacco smoke exposure: No Alcohol intake: current Drinks per week: 1 Alcohol use details: Occasional Glass of Wine Substance use: never Substance use type: does not use Additional living arrangements comments: Gender identity (if verbalized by the patient): Female Spiritual care concerns: No Anes - Eval Final PreProcedure Day of Procedure 05/31/21 13:52 Patient weight: thin Heart: regular rate and rhythm Lungs: clear to auscultation and normal air movement Airway: Mallampati scale class II Neurological: alert and oriented Last oral intake: >/= 8 hours ASA classification: II Emergent: no Anesthetic plan: proceed Anesthesia type and monitoring: general GIVS and standard monitoring Informed Consent: The patient's anesthetic plan and its attendant risks and benefits were discussed with the patient/family/POA. Questions were solicited and answers provided to the satisfaction of the patient/family/POA.
[2021-06-22 13:47] VITALS: BMI 16.7
[2021-07-02 09:47] VITALS: BP 156/62; PULSE 69; RESP 18; TEMP 36.7; O2SAT 97; BMI 16.5
[2021-07-02] MEDS: LACTATED RINGERS 1,000 ML 150 ML IV CONT (10:08)
--- NOTE | 2021-07-02 10:55 | WPDANESEPPF ---
Anes - Initial Pre Proc Eval Procedure: Operation Date: 07/02/21 11:00 Proposed Procedures p Esophagogastroduodenoscopy - Cleveland Modi MD Date/Time: 07/02/21 10:55 Surgeon: Cleveland Modi MD Pre Op Diagnosis: gastric ulcer Patient Data Age: 75 Gender: F Height: 1.73 m Weight: 49.4 kg Last Vital Signs Temp 98.0 F 07/02/21 09:47 Pulse 69 07/02/21 09:47 Resp 18 07/02/21 09:47 BP 156/62 H 07/02/21 09:47 Pulse Ox 97 07/02/21 09:47 Allergies Allergy/AdvReac Type Severity Reaction Status Date / Time ibuprofen AdvReac Unknown Vomiting Verified 06/22/21 13:45 Home Medications Medication Instructions Recorded Confirmed Type amlodipine 10 mg PO DAILY 04/27/21 05/26/21 History ferrous sulfate 325 mg (65 mg 324 mg PO BID #90 tablet 05/26/21 07/02/21 Rx iron) tablet mecobalamin (vitamin B12) 1,000 1,000 mcg SUBLINGUAL DAILY #90 05/26/21 06/22/21 Rx mcg disintegrating tablet tablet,sublingual pantoprazole 40 mg tablet,delayed 40 mg PO BID #90 tablet 05/26/21 06/22/21 Rx release Patient hx anesthesia problems: none Family hx anesthesia problems: none Results Review: All pre-operative results and documents have been reviewed as part of the pre-operative evaluation. 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 She has been taking care of her who has dementia. She has 3 children. They are the durable power attorney lawyer for healthcare. The patient would like to be a full code but would not like to live in a vegetative state. 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 She occasionally drinks wine with meals. No marijuana or illicit drugs Smoking packs per day: 0.5 Smoking cigarettes per day: 10.0 Years smoked: 50 Smoking pack-years: 25.00 Smoking status: Current every day smoker Tobacco type: cigarettes Second hand tobacco smoke exposure: No Alcohol intake: current Drinks per week: 1 Alcohol use details: 1 glass of wine consumed occansionally Substance use: never Substance use type: does not use Living arrangements: alone Additional living arrangements comments: Gender identity (if verbalized by the patient): Female Sexual Orientation (if Verbalized by the Patient): Straight or Heterosexual Spiritual care concerns: No Anes - Eval Final PreProcedure Day of Procedure 07/02/21 10:55 Patient weight: normal Heart: regular rate and rhythm Lungs: clear to auscultation Airway: Mallampati scale class II Neurological: alert and oriented Last oral intake: >/= 8 hours ASA classification: II Emergent: no Anesthetic plan: proceed Anesthesia type and monitoring: general GIVS and standard monitoring Results Review: All pre-operative results and documents have been reviewed as part of the pre-operative evaluation. Informed Consent: The patient's anesthetic plan and its attendant risks and benefits were discussed with the patient/family/POA. Questions were solicited and answers provided to the satisfaction of the patient/family/POA.
--- NOTE | 2021-07-02 10:57 | PM.HPGS ---
History of Present Illness History of Present Illness Consent: Risks, benefits, and alternatives have been discussed and questions answered. Patient agrees to proceed with procedure. Chief complaint: gastric ulcer Narrative: Sangeetha Contreras is a 75 year old female with melena due to large gastric ulcer, no more bleeding and still using ppi. Hb now is normal. Review of Systems Constitutional: Constitutional: Denies headache(s) and Denies weakness Eyes: Eyes: Denies blurry vision ENT: Reports Normal hearing present, Denies headache(s) and Denies neck pain Cardiovascular: Cardiovascular: Denies chest pain and Denies dyspnea Respiratory: Respiratory: Denies dyspnea Gastrointestinal: Gastrointestinal: Reports no additional gastrointestinal complaints Genitourinary: Genitourinary: Denies dysuria Musculoskeletal: Musculoskeletal: Denies neck pain Integumentary/Breasts: Skin/Breast: Denies dry skin Neurologic: Reports Normal hearing present, Denies headache(s) and Denies weakness Psychiatric: Psychiatric: Denies anxiety Endocrine: Endocrine: Denies change in body appearance Hematologic/Lymphatic: Hematologic/Lymphatic: Denies easy bleeding Allergic/Immunologic: Allergic/Immunologic: Denies urticaria PMFSH Past Medical History Medical History Acute blood loss anemia Essential (primary) hypertension Gastric ulcer Vitamin B12 deficiency Weakness Surgical History Surgical History H/O colonoscopy with polypectomy 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 She has been taking care of her who has dementia. She has 3 children. They are the durable power civil attorney for healthcare. The patient would like to be a full code but would not like to live in a vegetative state. 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 She occasionally drinks wine with meals. No marijuana or illicit drugs Smoking packs per day: 0.5 Smoking cigarettes per day: 10.0 Years smoked: 50 Smoking pack-years: 25.00 Smoking status: Current every day smoker Tobacco type: cigarettes Second hand tobacco smoke exposure: No Alcohol intake: current Drinks per week: 1 Alcohol use details: 1 glass of wine consumed occansionally Substance use: never Substance use type: does not use Living arrangements: alone Additional living arrangements comments: Gender identity (if verbalized by the patient): Female Sexual Orientation (if Verbalized by the Patient): Straight or Heterosexual Spiritual care concerns: No Meds Home Medications and Allergies Home Medications Medication Instructions Recorded Confirmed Type amlodipine 10 mg PO DAILY 04/27/21 05/26/21 History ferrous sulfate 325 mg (65 mg 324 mg PO BID #90 tablet 05/26/21 07/02/21 Rx iron) tablet mecobalamin (vitamin B12) 1,000 1,000 mcg SUBLINGUAL DAILY #90 05/26/21 06/22/21 Rx mcg disintegrating tablet tablet,sublingual pantoprazole 40 mg tablet,delayed 40 mg PO BID #90 tablet 05/26/21 06/22/21 Rx release Allergies Allergy/AdvReac Type Severity Reaction Status Date / Time ibuprofen AdvReac Unknown Vomiting Verified 06/22/21 13:45 Vital Signs Vital Signs - 24 hr 07/02/21 09:47 Temperature 98.0 F Pulse Rate 69 Respiratory Rate 18 Blood Pressure 156/62 H Pulse Oximetry 97 Exam Const: General: comfortable and no acute distress HENMT: General nose exam: Normal nares present Eyes: General: appearance normal, both eyes and all related structures Neck: Neck: no JVD Resp
[2021-07-02] MEDS: BENZOCAINE (*SP) 60 ML SPRAY CAN (HURRICAINE) 1 SPRAY MUCOUS MEM (10:58)
[2021-07-02 11:08] VITALS: BP 178/67; PULSE 64; RESP 11; O2SAT 100
[2021-07-02 11:33] VITALS: BP 153/61; PULSE 64; RESP 19; O2SAT 98
[2021-07-02 11:43] VITALS: BP 160/66; PULSE 52; RESP 13; O2SAT 98
[2021-07-02 11:53] VITALS: BP 155/69; PULSE 63; RESP 15; O2SAT 98
== END 2021-07-02 11:54 | disposition home or self-care (01) ==
PROVIDERS: PCP Family Medicine; Visit Provider Internal Medicine Gastroenterology
PROC: 0DJ08ZZ Inspection of Upper Intestinal Tract, Via Natural or Artificial Opening Endoscopic (ICD-10-PCS; CPT 43235; principal; 2021-07-02 11:00)
DX: K25.9 Gastric ulcer, unspecified as acute or chronic, without hemorrhage or perforation (principal); K29.50 Unspecified chronic gastritis without bleeding; I10 Essential (primary) hypertension; E53.8 Deficiency of other specified B group vitamins; F17.210 Nicotine dependence, cigarettes, uncomplicated; Z96.641 Presence of right artificial hip joint; Z86.010 Personal history of colon polyps
CPT/HCPCS: 43239; 88305; J2704; J7120

== ENCOUNTER 2021-11-29 10:56 | Outpatient (CLI) | payer OTHER, MEDICARE, SELFPAY | END 2021-11-29 10:57 | disposition home or self-care (01) | LOC: ANHAUDIO 10:59 | PROVIDERS: PCP Family Medicine; Visit Provider Nurse Practitioner Family | DX: H90.A22 Sensorineural hearing loss, unilateral, left ear, with restricted hearing on the contralateral side (principal); H90.A31 Mixed conductive and sensorineural hearing loss, unilateral, right ear with restricted hearing on the contralateral side | CPT/HCPCS: 92557; 92567 ==

== ENCOUNTER 2022-02-11 10:59 | Outpatient (CLI) | payer OTHER, MEDICARE, SELFPAY ==
--- NOTE | ~2022-02-11 | XR_ITS ---
EXAMINATION: XR lumbar spine 2-3V DATE: 02/11/2022 11:26 INDICATION: Low back pain TECHNIQUE: Anteroposterior and lateral views of the lumbar spine, and cone-down lateral view of the l umbosacral junction were obtained. COMPARISON: CT, 04/28/2021 FINDINGS: Bone alignment is normal. There is no fracture. The vertebral body heights are maintained. There is severe loss of intervertebral disc space height at L2-3, L3-4, and L4-5 and moderate loss of disc space height at L5-S1. There is calcified atherosclerosis of the aorta and many of the other ar teries. There are 15 degrees of lumbar levoscoliosis. Changes of right total hip arthroplasty are not ed. There is severe osteoarthritis of the left hip. IMPRESSION: 1. Severe lumbar spondylosis without acute findings or significant interval change. Reviewed, dictated and finalized at location B. IMPRESSION: 1. Severe lumbar spondylosis without acute findings or significant interval rj nge.
== END 2022-02-11 11:00 | disposition home or self-care (01) ==
PROVIDERS: PCP Family Medicine; Visit Provider Family Medicine
DX: M54.50 Low back pain, unspecified (principal); G89.29 Other chronic pain; M47.816 Spondylosis without myelopathy or radiculopathy, lumbar region
CPT/HCPCS: 72100

== ENCOUNTER 2022-04-13 13:30 | Outpatient (RCR) | payer MEDICARE, MEDICAID, SELFPAY ==
--- NOTE | 2022-03-24 11:01 | PTOPEVAL ---
PHYSICAL THERAPY EVALUATION AND PLAN OF TREATMENT 03-24-22 Thank you for referring Sangeetha Contreras to [facility], for the diagnsosis of low back pain.? T She is scheduled to be seen for therapy? 2 x/week for 3 weeks. Please review, sign, date and return this plan of care ANNALISA. I agree with and certify that the following plan of care is medically necessary. Referring Physician Date Attending Provider: Chandrakant Doherty MD Past Medical History Source of Past Medical History Recalled from Previous Visit, Confirmed with Patient/Family Neurological History Hx Neurological Disorders No Significant History Cardiovascular History Hx Hypertension Yes: meds Respiratory History Hx Respiratory Disorders No Significant History Gastrointestinal History Hx Ulcer Yes: 04/2021 Genitourinary History Hx Genitourinary Disorders No Significant History Musculoskeletal History Hx Joint Replacement Yes: R THR 2014 Hematological History Hx Anemia Yes Endocrine History Hx Endocrine Disorders No Significant History HEENT History Hx Tonsillectomy Yes Integumentary History Hx Skin Disorders No Significant History Reproductive History Hx Post Menopausal Yes Psychosocial History Hx Anxiety Yes: currently Pain History History of Any Previous or Ongoing No Significant History Instance of Pain Anesthesia History Hx Anesthesia Reactions No Significant History Other History Hx Implanted Device Yes: Right Hip Evaluation Information Diagnosis low back pain Onset December 2021 Subjective Information no trauma to back, gradual Query Text:As Reported By Patient/ increase in pain; 1& 1/2 yrs Family caring for and having to lift and move him; he is now in the NH; Diagnostic Tests X-Rays For This Problem Yes: severe lumbar spondylosis L 2,3,4,5;levoscoliosis,L hip OA Previous Treatments Previous Treatments For This Problem have not have PT for back Prior Level of Function Activity Level (Last 3 Months) Occupation retired Activity of Daily Living Ability Independent Indoor/Home Mobility Independent Community Mobility Independent Stairs Ability Independent Functional Cognition (Planning, Shopping Independent , Taking Medications) Cooking Yes Cleaning Yes Laundry Yes Shopping Yes Driving Yes Home Setting Living Situation Alone Support Available Local Family Support
--- NOTE | 2022-04-13 14:22 | PTOPEVAL ---
PHYSICAL THERAPY DISCHARGE REPORT 04-13-22 Refer to the clinical summary below, for her status today, compared to the initial evaluation. Discharge PT services at this time. Thank you for referring Sangeetha Contreras to [facility].? Please review, sign, date and return this Discharge report ANNALISA. I agree with and certify that the following plan of care is medically necessary. Referring Physician Date Attending Provider: Chandrakant Doherty MD Subjective Information Sangeetha reports: have less pain Query Text:As Reported By Patient/ since having therapy; is Family doing the exercises at home without any problems; is more careful when lifting is squatting and watching the position of her back when doing things at home; Pain Assessment Pain Scale Pain Scale Used Numeric (1 - 10) Self Report Pain Assessment Bilateral Back Reported Pain Level 3 Pain Description Tightness Pain Frequency Chronic Other Pain Description nagging pain at waist line Lowest Pain Intensity 0 Greatest Pain Intensity 3 Additional Pain Score Comments reports is more careful with moving and doing things; getting in car hurts her back- ---educated on sitting first, then swing legs into car; rolling in bed- sometimes hurts--educated on bridge to move hips and log rolling Interventions Used Interventions Used By Clinicians Education,Exercise Pain Relief Interventions Used By Heat,Inactivity/Rest,Position Patient Change Gross Lower Extremity Range of Motion anterior hip-quad length with Comments prone knee flexion R 130'/ L 125'; standing trunk flexion fingers to ankles- no increase pain Gross Lower Extremity Strength functional strength testing: - side lying hip abduction R 30/L reps - prone hip extension R 15 /L 20 reps _ B UE box lift, waist/floor height, increase to 20#, 3 reps with good technique and no increase pain, but reported heavy and have family help for something that heavy ; verbal review of HEP: c
== END 2022-04-14 14:51 | disposition home or self-care (01) ==
LOC: ANHPT 13:30
PROVIDERS: PCP Family Medicine; Visit Provider Family Medicine
DX: M54.50 Low back pain, unspecified (principal); G89.29 Other chronic pain
CPT/HCPCS: 97014; 97110; 97112; 97161; 97530; G0283

== ENCOUNTER 2022-06-22 10:45 | Outpatient (CLI) | payer MEDICARE, MEDICAID, SELFPAY ==
[2022-06-22 18:51] LABS: Alanine Aminotransferase 14 U/L (6-35); Alkaline Phosphatase 75 U/L (38-126); Anion Gap 14 mmol/L (8-16); Aspartate Amino Transferase 55 U/L (14-36); Bilirubin,Total 0.5 mg/dL (0.2-1.3); Blood Urea Nitrogen 11 mg/dL (7-17); Calcium 10.1 mg/dL (8.4-10.2); Carbon Dioxide 27 mmol/L (22-30); Chloride 103 mmol/L (98-107); Estimated Glomerular Filt Rate > 60; Glucose 83 mg/dL (65-110); Potassium 4.3 mmol/L (3.4-5.0); Sodium 144 mmol/L (137-145)
[2022-06-22 19:30] LABS: Vitamin D 25 Hydroxy 38.1 ng/mL
== END 2022-06-22 10:46 | disposition home or self-care (01) ==
LOC: ANHGOSHLAB 10:50
PROVIDERS: PCP Family Medicine; Visit Provider Family Medicine
DX: E55.9 Vitamin D deficiency, unspecified (principal); I10 Essential (primary) hypertension; Z51.81 Encounter for therapeutic drug level monitoring; Z79.899 Other long term (current) drug therapy
CPT/HCPCS: 36415; 80053; 82306

== ENCOUNTER → 2022-10-25 13:31 | Outpatient (CLI) | payer MEDICARE, SELFPAY ==
--- NOTE | ~2022-10-25 | MR_ITS ---
EXAMINATION: MR lumbar spine wo con DATE: 10/25/2022 14:00 INDICATION: Lumbar radiculopathy. Low back pain. TECHNIQUE: Magnetic resonance imaging (MRI) of the lumbar spine was performed without intravenous con trast. Sequences included sagittal T2-weighted FSE, sagittal T2-weighted FS FSE, sagittal T1-weighted FSE, and axial T2-weighted FSE. COMPARISON: Lumbar spine radiographs 02/11/22 FINDINGS: There is 12 degrees levoscoliosis of lumbar spine. Body heights are normal. There is severe ly decreased disc height from L2-L3 through L5-S1 with endplate remodeling. The distal spinal cord si gnal intensity is normal. The conus medullaris is at L1-L2. The following disc levels are specificall y discussed: L1-L2: The disc does not extend beyond the endplate margin. There is mild bilateral facet joint osteo arthritis. There is no neural foraminal stenosis. There is no central canal stenosis. L2-L3: The disc is bulging and has an annular fissure. There is severe bilateral facet joint osteoart hritis. There is moderate right and mild left neural foraminal stenosis. There is mild central canal stenosis. L3-L4: The disc is bulging and has an annular fissure. There is severe bilateral facet joint osteoart hritis. There is mild bilateral neural foraminal stenosis. There is mild central canal stenosis. L4-L5: The disc is bulging and has an annular fissure. There is severe bilateral facet joint osteoart hritis. There is mild bilateral neural foraminal stenosis. There is mild central canal stenosis. L5-S1: The disc is bulging with superimposed central extrusion. There is severe bilateral facet joint osteoarthritis. There is mild bilateral neural foraminal stenosis. There is mild central canal steno sis. IMPRESSION: 1. Severe lumbar spondylosis. 2. Lumbar levoscoliosis. Reviewed, dictated and finalized at location A. [employer]
== END ==
PROVIDERS: PCP Family Medicine; Visit Provider Nurse Practitioner Family
DX: M54.16 Radiculopathy, lumbar region (principal); M43.06 Spondylolysis, lumbar region; M41.86 Other forms of scoliosis, lumbar region
CPT/HCPCS: 72148

== ENCOUNTER 2023-01-12 09:45 | Outpatient (CLI) | payer MEDICARE, SELFPAY ==
--- NOTE | ~2023-01-12 | DEXA_ITS ---
Bone Density Report Name: DEMETRIUS SILVA Age: 77 Sex: Female Ethnicity: White Date of : 1945 Indication: postmenopausal; screening for osteoporosis; height loss; Referring Provider: KERRI HAYWARD Study: Bone densitometry was performed. Exam Date: January 12, 2023 Accession number: [id number] Bone Density: Region BMD T-score Z-score Classification AP Spine(L1-L4) 0.984 -0.6 2.0 Normal Femoral Neck (Left) 0.492 -3.2 -1.0 Osteoporosis Total Hip (Left) 0.608 -2.7 -0.8 Osteoporosis World Health Organization criteria for BMD impression classify patients as: Normal (T-score at or above -1.0), Osteopenia (T-score between -1.0 and -2.5), or Osteoporosis (T-score at or below -2.5). 10-year Fracture Risk: FRAX not reported because: Some T-score for Spine Total or Hip Total or Femoral Neck at or below -2.5 Clinical Information Provided by Patient: Smokes Has used the following medications: Vitamin D, Calcium Patient maximum height was 68 Menopause Age: 45 Onset of menses at age 13 Number of children 3 Impression: The patient has osteoporosis, based on the Left Femoral Neck T-score. The patient has risk factors, including: smoking. Discussion: INCREASED RISK OF FRACTURE. BONE DENSITY IS UNDESIRABLY LOW AT ONE OR MORE SKELETAL SITES, CONSISTENT WITH POSTMENOPAUSAL OSTEOPOROSIS. This patient's lowest T-score meets the World Health Organization's (WHO) criteria for osteoporosis at one or more sites (T-score -2.5 or below). In untreated patients, the risk of osteoporotic fracture increases approximately two-fold for each 1.0 SD decrease in T-score. Low bone density is not the only risk factor for fracture; also consider factors such as patient's age, frailty or poor health, risk of falling, risk of injury, previous osteoporotic fracture, family history of osteoporosis, cigarette smoking, low body weight, etc. Not everyone with low bone mineral density has osteoporosis; osteomalacia and other metabolic bone disorders should also be considered. Patients who have osteoporosis should be evaluated for specific diseases and conditions (secondary causes) that may cause or contribute to bone loss. The [place] [employer]ocrin[employer] (AACE) and National Osteoporosis Foundation (NOF) recommend pharmacologic intervention for all postmenopausal women whose T-score is in this range. The patient should follow a healthful lifestyle (good nutrition with adequate calcium and vitamin D, and appropriate weight-bearing exercise). Follow-Up: Consider a repeat BMD and Vertebral Fracture Assessment (VFA) exam in 2 years or sooner if medically necessary, to reassess this patient's status. Reported by: GUILLERMINA on 01/12/2023 10:23:00 AM. Reviewed, dictated and finalized at location ADanae LEACH
== END 2023-01-12 09:46 | disposition home or self-care (01) ==
PROVIDERS: PCP Family Medicine; Visit Provider Nurse Practitioner
DX: Z78.0 Asymptomatic menopausal state (principal); M81.0 Age-related osteoporosis without current pathological fracture
CPT/HCPCS: 77080

== ENCOUNTER 2023-07-04 13:22 | Outpatient (CLI) | payer MEDICARE, SELFPAY ==
[2023-07-04 18:47] LABS: Alanine Aminotransferase 23 U/L (6-35); Albumin Level 4.6 g/dL (3.5-5.1); Alkaline Phosphatase 81 U/L (38-126); Anion Gap 10 mmol/L (8-16); Aspartate Amino Transferase 49 U/L (14-36); Bilirubin,Total 0.7 mg/dL (0.2-1.3); Blood Urea Nitrogen 10 mg/dL (7-17); Calcium 9.4 mg/dL (8.4-10.2); Carbon Dioxide 26 mmol/L (22-30); Chloride 103 mmol/L (98-107); Estimated Glomerular Filt Rate > 60; Glucose 94 mg/dL (65-110); Potassium 4.4 mmol/L (3.4-5.0); Sodium 139 mmol/L (137-145)
== END 2023-07-04 13:23 | disposition home or self-care (01) ==
PROVIDERS: PCP Family Medicine; Visit Provider Family Medicine
DX: I10 Essential (primary) hypertension (principal); Z79.899 Other long term (current) drug therapy
CPT/HCPCS: 36415; 80053

== ENCOUNTER 2024-07-09 13:29 | Outpatient (CLI) | payer MEDICARE, SELFPAY ==
[2024-07-09 19:47] LABS: Alanine Aminotransferase 14 U/L (6-35); Albumin Level 4.5 g/dL (3.5-5.1); Alkaline Phosphatase 64 U/L (38-126); Anion Gap 6 mmol/L (4-12); Aspartate Amino Transferase 34 U/L (14-36); Bilirubin,Total 0.5 mg/dL (0.2-1.3); Blood Urea Nitrogen 11 mg/dL (7-17); Calcium 9.4 mg/dL (8.4-10.2); Carbon Dioxide 29 mmol/L (22-30); Chloride 104 mmol/L (98-107); Estimated Glomerular Filt Rate > 60; Glucose 90 mg/dL (65-110); Potassium 4.4 mmol/L (3.4-5.0); Sodium 139 mmol/L (137-145)
== END 2024-07-09 13:30 | disposition home or self-care (01) ==
LOC: ANHGOSHLAB 13:31
PROVIDERS: PCP Family Medicine; Visit Provider Family Medicine
DX: I10 Essential (primary) hypertension (principal); Z79.899 Other long term (current) drug therapy
CPT/HCPCS: 36415; 80053

== ENCOUNTER 2025-02-26 09:54 | Outpatient (CLI) | payer MEDICARE, SELFPAY ==
--- NOTE | ~2025-02-26 | DEXA_ITS ---
Bone Density Report Name: DEMETRIUS SILVA Age: 79 Sex: Female Ethnicity: White Date of : 1945 Indication: postmenopausal osteoporosis; monitoring treatment; height loss; Referring Provider: Sher Doherty Study: Bone densitometry was performed. Exam Date: February 26, 2025 Accession number: [id number] Bone Density: Region BMD T-score Z-score Classification AP Spine(L1-L4) 1.060 0.1 2.8 Normal Femoral Neck (Left) 0.518 -3.0 -0.7 Osteoporosis Total Hip (Left) 0.618 -2.7 -0.6 Osteoporosis World Health Organization criteria for BMD impression classify patients as: Normal (T-score at or above -1.0), Osteopenia (T-score between -1.0 and -2.5), or Osteoporosis (T-score at or below -2.5). 10-year Fracture Risk: FRAX not reported because: Some T-score for Spine Total or Hip Total or Femoral Neck at or below -2.5 Treated for osteoporosis Previous Exams: -- Region Exam Age BMD T-score BMD Change BMD Change Date g/cm2 vs Baseline vs Previous -- AP Spine (L1-L4) 02/26/2025 79 1.060 0.1 7.7%* 7.7%* 01/12/2023 77 0.984 -0.6 Total Hip(Left) 02/26/2025 79 0.618 -2.7 1.8% 1.8% 01/12/2023 77 0.608 -2.7 -- *Denotes significance at 95% confidence level, LSC for AP Spine = 0.022 g/cm2, LSC for Total Hip = 0.027 g/cm2 Clinical Information Provided by Patient: Smokes Is being treated for osteoporosis Has used the following medications: Fosamax (i.e. alendronate), Vitamin D, Calcium Patient maximum height was 68.0 Menopause Age: 45 No regular weight bearing exercise Drinks caffeinated beverages Onset of menses at age 13 Number of children 3 Impression: The patient has osteoporosis, based on the Left Femoral Neck T-score. The patient has risk factors, including: smoking. No significant bone loss was observed. Discussion: PATIENT UNDER TREATMENT WITH NO SIGNIFICANT BMD LOSS SINCE LAST EXAM. In an untreated patient, BMD typically declines with age. A lack of decline or gain is usually a sign that treatment is efficacious and fracture risk is reduced. It is important to ask patients whether they are taking their medications and to encourage continued and appropriate compliance with their osteoporosis therapies to reduce fracture risk. It is also important to review their risk factors and encourage appropriate calcium and vitamin D intakes, exercise, fall prevention and other lifestyle measures. Follow-Up: Consider a repeat BMD and Vertebral Fracture Assessment (VFA) exam in 2 years or sooner if medically necessary, to reassess this patient's status. Reported by: GUILLERMINA on 02/26/2025 10:26:00 AM. Reviewed, dictated and finalized at location A.
== END 2025-02-26 09:55 | disposition home or self-care (01) ==
PROVIDERS: PCP Family Medicine; Visit Provider Family Medicine
DX: Z78.0 Asymptomatic menopausal state (principal); M81.0 Age-related osteoporosis without current pathological fracture
CPT/HCPCS: 77080

== ENCOUNTER 2025-07-30 14:19 | Outpatient (CLI) | payer MEDICARE, SELFPAY ==
[2025-07-30 15:59] LABS: Alanine Aminotransferase 13 U/L (6-35); Albumin Level 4.6 g/dL (3.5-5.1); Alkaline Phosphatase 68 U/L (38-126); Anion Gap 8 mmol/L (4-12); Aspartate Amino Transferase 29 U/L (14-36); Bilirubin,Total 0.6 mg/dL (0.2-1.3); Blood Urea Nitrogen 13 mg/dL (7-17); Calcium 9.5 mg/dL (8.4-10.2); Carbon Dioxide 27 mmol/L (22-30); Chloride 104 mmol/L (98-107); Estimated Glomerular Filt Rate > 60; Glucose 93 mg/dL (65-110); Potassium 4.4 mmol/L (3.4-5.0); Sodium 139 mmol/L (137-145); Total Protein 7.6 g/dL (6.3-8.2)
== END 2025-07-30 14:20 | disposition home or self-care (01) ==
LOC: ANHGOSHLAB 14:19
PROVIDERS: PCP Family Medicine; Visit Provider Family Medicine
DX: I10 Essential (primary) hypertension (principal)
CPT/HCPCS: 36415; 80053